=== PATIENT | male | born 1975 | race Hispanic/Latino ===

== ENCOUNTER 2019-06-05 11:53 | Emergency (ER) | payer OTHER ==
[~2019-06-05] VITALS: Ht 165.1 cm; Wt 62.0 kg
[2019-06-05 12:40] VITALS: BP 130/89
== END 2019-06-05 12:40 | disposition home or self-care (01) | DRG 563 ==
LOC: ED 11:53
DX: S46.912A Strain of unspecified muscle, fascia and tendon at shoulder and upper arm level, left arm, initial encounter (principal); V43.53XA Car driver injured in collision with pick-up truck in traffic accident, initial encounter; Y92.414 Local residential or business street as the place of occurrence of the external cause

== ENCOUNTER 2022-01-24 11:34 | Emergency (ER) | payer SELFPAY ==
[~2022-01-24] VITALS: Ht 165.1 cm; Wt 78.0 kg
[2022-01-24 11:45] VITALS: BP 159/94
[2022-01-24 12:00] VITALS: BP 166/91
[2022-01-24 12:07] VITALS: BP 159/114
[2022-01-24 12:08] VITALS: BP 160/92
== END 2022-01-24 12:08 | disposition left against medical advice (07) | DRG 312 ==
LOC: ED 11:34
DX: R55 Syncope and collapse (principal); R11.2 Nausea with vomiting, unspecified; F17.200 Nicotine dependence, unspecified, uncomplicated; Z91.19 Patient's noncompliance with other medical treatment and regimen

== ENCOUNTER 2022-10-01 12:57 | Emergency (ER) | payer SELFPAY ==
[2022-10-01] VITALS (9 sets, daily range): BP systolic 124–148; BP diastolic 77–80
[~2022-10-01] VITALS: Ht 165.1 cm; Wt 68.0 kg
[2022-10-01 13:27] LABS: HEMATOCRIT 35.5 % (39.0-50.0); HEMOGLOBIN 12.2 g/dl (14.0-18.0); IMMATURE GRANULOCYTES 0.4 % (0.0-5.0); MEAN CELL VOLUME 95.9 fL CALC (80.0-100.0); MEAN CORPUSCULAR HGB CONC 34.4 g/dL CAL (32.0-36.0); NEUT# 3.69 thou/uL (1.82-7.42); RED BLOOD COUNT 3.7 mill/uL (4.70-6.10); RED CELL DISTRI WIDTH 13.3 % (11.5-15.5)
[2022-10-01 13:40] LABS: ALKALINE PHOSPHATASE 71 u/l (38-126); BUN 5 mg/dL (9-20); BUN/CREATININE RATIO 7 (12-20 (CALC)); CARBON DIOXIDE 22 mmol/l (22-30); CHLORIDE 92 mmol/l (95-108); CREATININE 0.7 mg/dL (0.7-1.3); ETHYL ALCOHOL 0 mg/dl (0-30); GFR FOR AFR.AMER. > 60 ML/MIN (>=60 (CALC)); GFR OTHER RACES > 60 ML/MIN (>=60 (CALC)); POTASSIUM 3.5 mmol/l (3.5-5.1)
[2022-10-01 13:49] LABS: ALBUMIN 4.8 g/dL (3.2-5.0); ANION GAP 19 (6-22 (CALC)); BILIRUBIN, TOTAL 0.6 mg/dL (0.0-1.4); SGOT/AST 128 u/l (17-59); SODIUM 129 mmol/l (137-146); TOTAL PROTEIN 8.1 g/dL (6.3-8.2)
== END 2022-10-01 15:27 | disposition left against medical advice (07) | DRG 101 ==
LOC: ED 12:57
PROVIDERS: Nurse Practitioner
DX: R56.9 Unspecified convulsions (principal); E87.1 Hypo-osmolality and hyponatremia; F10.20 Alcohol dependence, uncomplicated; F17.200 Nicotine dependence, unspecified, uncomplicated; Y90.0 Blood alcohol level of less than 20 mg/100 ml; Z53.29 Procedure and treatment not carried out because of patient's decision for other reasons
CPT/HCPCS: J1953